=== PATIENT | female | born 1940 | race Caucasian/White ===

== ENCOUNTER 2017-05-07 14:59 | Emergency (ER) | payer BC, MEDICARE, OTHER ==
[~2017-05-07] VITALS: Ht 157.5 cm; Wt 60.6 kg
[~2017-05-07 14:59] MED LIST: FOSA40TA; MULTIVITAMIN
[2017-05-07 15:05] VITALS: BP 124/68; PULSE 89; RESP 18; TEMP 99.1; O2SAT 96
[2017-05-07] MEDS ORDERED: BENZ100 PO (15:17)
[2017-05-07] MEDS ORDERED: AMOX875T PO (15:17)
--- NOTE | 2017-05-07 15:21 | PD ---
HPI Chief Complaint: Cold / Flu Symptoms Time Seen by Provider: 15:10 Travel History International Travel<30 days: No Contact w/Intl Traveler<30days: No Traveled to known affect area: No History of Present Illness HPI 77-year-old female that presents to the ED for evaluation of cold like symptoms and sinus pressure. Per patient she's had congestion, cough and sore throat for the past 3 days. Per patient he started on Sunday. Apparently She was in contact with her grandson who was visiting and had some cold-like symptoms as well. She does not know what he had. Patient states that she mainly was concerned because she's never had the sore throat in the chest congestion she's had now. She does have a lot of congestion and she is taking [id number] remedies which didn't provide relief but if she doesn't take it as prescribed she gets the symptoms. She denies any urinary or bowel movement issues. No medical problems and takes no prescribed medications at this time. No history of diabetes or immunosuppression. History of COPD or asthma. No recent travel. No allergies to medication. No other medical issues. PFSH Past Medical History Arthritis: Yes (OSTEO) Diminished Hearing: No Tetanus Vaccination: Unknown Influenza Vaccination: No ?: Not Past Surgical History Appendectomy: Yes Tonsillectomy: Yes (ADNOIDS) Social History Alcohol Use: Yes (OCCAS) Tobacco Use: No Substance Use: No Allergies-Medications (Allergen,Severity, Reaction): Coded Allergies: No Known Allergies (Verified Allergy, Mild, 05/07/17) Reported Meds & Prescriptions Reported Meds & Active Scripts Active Tessalon Perles (Benzonatate) 100 Mg Cap 100 Mg PO TID PRN Amoxicillin 875 Mg Tab 875 Mg PO BID 10 Days Reported [Multivitamin] Fosamax (Alendronate Sodium) 40 Mg Tab Review of Systems Except as stated in HPI: all other systems reviewed are Neg Physical Exam Narrative GENERAL: Well-nourished, well-developed patient in no apparent distress. SKIN: Warm and dry. HEAD: Atraumatic. Normocephalic. EYES: Pupils equal and round reactive to light and accommodation. No scleral icterus. No injection or drainage. ENT: No nasal bleeding or discharge. Mucous membranes pink and moist. TMs are clear with no sign of infection or perforation. No mastoid tenderness. Ear canals are intact bilaterally. No lymphadenopathy. Nostril mucosa is red and moist with clear mucus noted. No sinus tenderness to palpation noted. Tonsils are not enlarged or swollen. No ulvua Deviation. Tongue is midline. NECK: Trachea midline. No JVD. No meningeal signs noted CARDIOVASCULAR: Regular rate and rhythm. RESPIRATORY: No accessory muscle use. Clear to auscultation. Breath sounds equal bilaterally. GASTROINTESTINAL: Abdomen soft, non-tender, nondistended. Hepatic and splenic margins not palpable. MUSCULOSKELETAL: Extremities without clubbing, cyanosis, or edema. No obvious deformities. NEUROLOGICAL: Awake and alert. No obvious cranial nerve deficits. Motor grossly within normal limits. Five out of 5 muscle strength in the arms and legs. Normal speech. PSYCHIATRIC: Appropriate mood and affect; insight and judgment normal. Data Data Last Documented VS Vital Signs Date Time Temp Pulse Resp B/P (MAP) Pulse Ox O2 Delivery O2 Flow Rate FiO2 05/07/17 15:05 99.1 89 18 124/68 (86) 96 Orders Orders Ed Discharge Order (05/07/17 15:18) [facility] Medical Decision Making Medical Screen Exam Complete: Yes Emergency Medical Condition: Yes Medical Record Reviewed: Yes Differential Diagnosis Bronchitis versus sinusitis versus URI versus rhinosinusitis Narrative Course 77-year-old female that presents to the ED for evaluation of cold like symptoms. Patient was properly examined and was found to have signs and symptoms consistent appears to be acute rhinosinusitis. Her sensory appears to be likely postnasal drip. Vitals and physical exam are reassuring. At this time and do recommend trial of antibiotics secondary to her age. Cough medicine as well. She was told to continue taking her [id number] remedy as it seems to be working for her. Close follow with PCP. See ED if worsening symptoms. Diagnosis Primary Impression: Acute rhinosinusitis Patient Instructions: General Instructions Additional Instructions: Motrin and Tylenol for pain and fever. Cough drops for cough as needed. Drink plenty of fluids. Follow-up with PCP. See ED for worsening symptoms. Med/Other Pt SpecificInfo: Prescription(s) given Scripts Benzonatate (Tessalon Perles) 100 Mg Cap 100 MG PO TID Y for COUGH, #20 CAP 0 Refills Prov: Mike Olivia MD 05/07/17 Amoxicillin (Amoxicillin) 875 Mg Tab 875 MG PO BID for Infection for 10 Days, #20 TAB 0 Refills Prov: Mike Olivia MD 05/07/17 Disposition: 01 DISCHARGE HOME Condition: Peter Wagner May 07, 2017 15:21
== END 2017-05-07 16:12 | disposition home or self-care (01) ==
LOC: PHEFT 14:59
DX: J01.90 Acute sinusitis, unspecified (principal)
CPT/HCPCS: 99283